=== PATIENT | male | born 1965 | race Two or more races ===

== ENCOUNTER 2018-12-17 15:24 | Emergency (ER) | payer SELFPAY ==
[~2018-12-17] VITALS: Ht 157.5 cm; Wt 90.7 kg
[2018-12-17 15:32] VITALS: BP 160/99
== END 2018-12-17 16:51 | disposition left against medical advice (07) ==
LOC: ER 15:24 → EDBD 15:24 → ER 16:51
DX: F32.9 Major depressive disorder, single episode, unspecified (principal); Z53.29 Procedure and treatment not carried out because of patient's decision for other reasons

== ENCOUNTER 2021-11-13 15:37 | Emergency (ER) | payer MEDICAID, OTHER ==
[~2021-11-13] VITALS: Ht 157.5 cm; Wt 82.0 kg
[2021-11-13 16:05] VITALS: BP 152/92
[2021-11-13] MEDS ORDERED: KETOROLAC TROMETH 60MG/2ML VIAL IM ONE (17:45)
[2021-11-13] MEDS ORDERED: IBUP800T27 PO (17:52)
== END 2021-11-13 18:02 | disposition home or self-care (01) ==
LOC: ER 15:37
DX: S83.91XA Sprain of unspecified site of right knee, initial encounter (principal); X50.1XXA Overexertion from prolonged static or awkward postures, initial encounter; Y93.89 Activity, other specified; Y92.89 Other specified places as the place of occurrence of the external cause; Y99.8 Other external cause status
CPT/HCPCS: 73562; 96372; 99283; J1885

== ENCOUNTER 2023-02-06 13:15 | Emergency (ER) | payer MEDICAID ==
[~2023-02-06] VITALS: Ht 157.5 cm; Wt 91.1 kg
[~2023-02-06 13:15] MED LIST: IBUP-1456 PO
[2023-02-06 16:36] VITALS: BP 153/94; PULSE 113; RESP 16; TEMP 98.1; O2SAT 97
[2023-02-06] MEDS ORDERED: KETOROLAC TROMETH 60MG/2ML VIAL IM ONE (17:00)
[2023-02-06] MEDS ORDERED: ACET-1304 PO (17:15)
[2023-02-06] MEDS ORDERED: IBUP1TAB5 PO (17:15)
== END 2023-02-06 17:12 | disposition home or self-care (01) ==
LOC: ER 13:15
DX: S43.492A Other sprain of left shoulder joint, initial encounter (principal); Z79.899 Other long term (current) drug therapy; W11.XXXA Fall on and from ladder, initial encounter; Y93.89 Activity, other specified; Y92.89 Other specified places as the place of occurrence of the external cause; Y99.8 Other external cause status
CPT/HCPCS: 73030; 96372; 99283; J1885